=== PATIENT | male | born 1980 | race Caucasian/White ===

== ENCOUNTER 2019-05-01 14:23 | Outpatient (CLI) | payer BC ==
[~2019-05-01] VITALS: Ht 165.1 cm; Wt 60.5 kg
[2019-05-02] MEDS ORDERED: TMSL.4C PO (11:31)
[2019-05-02] MEDS ORDERED: NITR-65 PO (11:31)
[2019-05-02] MEDS ORDERED: PHEN-640 PO (11:31)
== END 2019-05-01 15:04 | disposition home or self-care (01) ==
LOC: PREOP 14:23
PROVIDERS: ATTEND Urology
DX: Z01.818 Encounter for other preprocedural examination (principal)

== ENCOUNTER → 2019-05-01 | Outpatient (CLI) | payer BC ==
[~2019-05-01] MED LIST: HYDR-4196 PO; NITR-65 PO; PHEN-640 PO; TMSL.4C PO
--- NOTE | 2019-05-01 14:19 | Diagnostic Imaging Report ---
INDICATION: History of distal right ureteral calculus. COMPARISON: I have no previous for comparison. FINDINGS: In the right hemipelvis at the level of the ischial spine there is an irregular calcification measuring 5.1 mm which may reflect a stone in the distal right ureter. No radiodense intrarenal stone found. Gas and bowel content project over the expected level of the left renal shadow. IMPRESSION: 5.1 mm right pelvic calcification suspicious for large distal right ureteral stone. Dictated by: Dictated on workstation # [id number]
== END ==
LOC: RAD 11:56
PROVIDERS: ATTEND Urology
DX: M61.9 Calcification and ossification of muscle, unspecified (principal); Z87.442 Personal history of urinary calculi
CPT/HCPCS: 74018

== ENCOUNTER 2019-05-02 08:28 | Day surgery (SDC) | payer BC ==
[2019-05-02] VITALS (11 sets, daily range): BP systolic 110–142; BP diastolic 68–92
[~2019-05-02] VITALS: Ht 165.1 cm; Wt 60.5 kg
[2019-05-02] MEDS ORDERED: LACTATED RINGERS 1,000 ML IV PRN (08:34)
[2019-05-02] MEDS ORDERED: cefTRIAXone FOR IV USE 1,000 MG in WATER (STERILE) FOR INJECTION 10 ML IV ONE (08:45)
--- NOTE | 2019-05-02 08:55 | Progress Note-Pre Operative ---
Pre-Operative Progress Note H&P Reviewed The H&P was reviewed, patient examined and no changes noted. Date Seen by Provider: May 02, 2019 Time Seen by Provider: 08:54 Date H&P Reviewed: May 02, 2019 Time H&P Reviewed: 08:54 Pre-Operative Diagnosis: RT DISTAL URETERAL STONE CAMILO MEAD MD May 02, 2019 08:55
--- NOTE | 2019-05-02 08:56 | Progress Note-Post Operative ---
Post-Operative Progess Note Surgeon (s)/Research Aide (s) Surgeon CAMILO MEAD MD Research Aide: NONE Pre-Operative Diagnosis RT DISTAL URETERAL STONE Post-Operative Diagnosis SAME Procedure & Operative Findings Date of Procedure 05/02/19 Procedure Performed/Findings RT URETEROSCOPY AND RT ESWL Anesthesia Type GENERAL Estimated Blood Loss Estimated blood loss (mL): NONE Specimens/Packing Specimens Removed NONE Packing: NONE CAMILO MEAD MD May 02, 2019 08:56
--- NOTE | 2019-05-02 08:57 | Discharge Inst-Urology ---
Discharge Inst-Urology Reconcile Patient Problems Problems Reviewed?: Yes Final Diagnosis RT DISTAL URETERAL STONE Patient Instructions/Follow Up Plan/Assessment/Instructions Please make appointment to been seen in office Saturday 05/13, KUB prior to it. KUB on way home Post ESWL instructions Increase oral fluids for 48 hours and then as needed. Diet and Activity as tolerated. If questions or concerns contact your physician Or seek help at emergency department. CAMILO MEAD MD May 02, 2019 08:57
[2019-05-02] MEDS ORDERED: LIDOCAINE PF 2% 5 ML (XYLOCAINE) VIAL ONE (09:00)
[2019-05-02] MEDS ORDERED: KETOROLAC 30 MG/ML VIAL ONE ×2 (09:00→09:35)
[2019-05-02] MEDS ORDERED: FUROSEMIDE 40 MG/4 ML INJ (LASIX) ONE ×2 (09:00→09:35)
[2019-05-02] MEDS ORDERED: SEVOFLURANE (ULTANE) 15 ML INHAL SOLN ONE ×2 (09:00→10:21)
[2019-05-02] MEDS ORDERED: proPOfol 200 MG/20 ML (DIPRIVAN) VIAL IV ONE (09:00)
[2019-05-02] MEDS ORDERED: MIDAZOLAM 2 MG/2 ML (VERSED) VIAL ONE (09:01)
[2019-05-02] MEDS ORDERED: fentaNYL INJECTION 100 MCG/2 ML AMP ONE (09:01)
--- NOTE | 2019-05-02 09:02 | Diagnostic Imaging Report ---
Nephrolithiasis KUB 8:54 AM There is a 5 mm calcification right-sided pelvis near the ureterovesical junction. This is unchanged compared to the previous day. Bowel gas pattern is normal. IMPRESSION: Calcification projecting over the right ureterovesical junction that could be a ureteral calculus. Dictated by: Dictated on workstation # [id number]
[2019-05-02] MEDS ORDERED: MEPERIDINE (DEMEROL) INJ 50 MG/ML IVP ONE (10:30)
[2019-05-02] MEDS ORDERED: morphine INJ 10 MG/ML 1ML (SYR OR VIAL) IVP ONE (10:30)
[2019-05-02] MEDS ORDERED: ONDANSETRON 4 MG/2 ML (SDV) Z0FRAN IVP PRN (10:30)
[2019-05-02] MEDS ORDERED: TMSL.4C PO (11:31)
[2019-05-02] MEDS ORDERED: PHEN-640 PO (11:31)
[2019-05-02] MEDS ORDERED: NITR-65 PO (11:31)
--- NOTE | 2019-05-02 13:06 | Diagnostic Imaging Report ---
INDICATION: Post extracorporeal shock wave lithotripsy. TECHNIQUE: Single supine view of the abdomen 12:15 PM CORRELATION STUDY: 05/02/2019 FINDINGS: Previous imaging demonstrated 5 mm calcification of the low right hemipelvis suggested positioning in the distal right ureter. This is not present at follow-up. Punctate calcification inferior pole right kidney is suggested. Left renal silhouette largely obscured by underlying bowel gas and stool. Nonobstructive appearing bowel gas pattern. IMPRESSION: 1. Nonvisualization previously noted 5 mm calcification in the right hemipelvis. Dictated by: Dictated on workstation # [id number]
--- NOTE | 2019-05-02 14:20 | OPERATIVE REPORT ---
DATE OF SERVICE: 05/02/2019 PREOPERATIVE DIAGNOSIS: Right distal ureteral stone. POSTOPERATIVE DIAGNOSIS: Right distal ureteral stone. OPERATION PERFORMED: Right ureteroscopy and ESWL. SURGEON: Dajuan Mead MD ANESTHESIA: General. COMPLICATIONS: None. DESCRIPTION OF PROCEDURE: Under satisfactory general anesthesia, the patient in lithotomy position in the cystoscopy suite. Genitalia were prepped and draped in the usual sterile fashion. Cystoscope was introduced under vision. The anterior urethra was normal. The prostate was nonobstructing, but there was a median bar. The bladder was entered and essentially normal except for sluggish efflux on the right side. Using the foroblique lens, I dilated the right ureteral orifice intramural portion to the level of the stone to accommodate a 6.9 [place] semirigid ureteroscope; however, I could not manipulate the curve just distal to the stone, so I discontinued further attempt and moved the patient to the ESWL suite after emptying the bladder with a cystoscope, and was put supine and under general anesthesia, the right distal ureteral stone was localized. Shocks were delivered at kV of 11. A total of 1500 shocks completely fragmented the stone that was not visualized anymore. We mapped the ureter up and down and there were no calcifications whatsoever. The patient received 40 mg of Lasix and 30 mg of Toradol IV at the end of the procedure. He tolerated the procedure and anesthesia well and was sent to recovery room in stable condition. Job ID: [id number] DocumentID: [id number] Dictated Date: 05/02/2019 10:04:32 Soft Iron Inspector Date: 05/02/2019 14:20:21 Dictated By: DAJUAN MEAD MD
--- NOTE | 2019-05-02 14:25 | Anesthesia-General Post-Op ---
General Patient Condition Mental Status/LOC: Same as Preop Cardiovascular: Satisfactory Nausea/Vomiting: Absent Respiratory: Satisfactory Pain: Controlled Complications: Absent Post Op Complications Complications None Follow Up Care/Instructions Patient Instructions None needed. Anesthesia/Patient Condition Patient Condition Patient is doing well, no complaints, stable vital signs, no apparent adverse anesthesia problems. No complications reported per nursing. CLARENCE GIL CRNA May 02, 2019 14:24
== END 2019-05-02 12:20 | disposition home or self-care (01) ==
LOC: SDC 08:28
PROVIDERS: ATTEND Urology
DX: N20.1 Calculus of ureter (principal)
CPT/HCPCS: 74018; 87081

== ENCOUNTER 2019-05-04 23:49 | Emergency (ER) | payer BC ==
[~2019-05-04] VITALS: Ht 165 cm; Wt 58.0 kg
[~2019-05-04 23:49] MED LIST changes: -HYDR-4196 PO
[2019-05-05] MEDS ORDERED: morphine INJ 10 MG/ML 1ML (SYR OR VIAL) IVP STA (00:13)
[2019-05-05] MEDS ORDERED: LACTATED RINGERS 1,000 ML IV SCH (00:15)
[2019-05-05] MEDS ORDERED: KETOROLAC 30 MG/ML VIAL IVP ONE (00:15)
[2019-05-05 00:39] LABS: HEMATOCRIT 40 % (40-54); HEMOGLOBIN 13.5 G/DL (13.3-17.7); MEAN CORPUSCULAR HEMOGLOBIN 29 PG (25-34); MEAN CORPUSCULAR VOLUME 86 FL (80-99); WHITE BLOOD COUNT 10.5 10^3/uL (4.3-11.0)
[2019-05-05 00:40] LABS: MEAN CORPUSCULAR HGB CONC 34 G/DL (32-36); MEAN PLATELET VOLUME 9.9 FL (7.4-10.4); PLATELET COUNT 234 10^3/uL (130-400); RED CELL DISTRIBUTION WIDTH 13.2 % (10.0-14.5)
[2019-05-05 00:45] LABS: BASOPHILS % (AUTO) 0 % (0-10); EOSINOPHILS % (AUTO) 0 % (0-10); LYMPHOCYTES # (AUTO) 3.7 X 10^3 (1.0-4.0); LYMPHOCYTES % (AUTO) 35 % (12-44); LYMPHOCYTES % (MANUAL) 26 %; MONOCYTES # (AUTO) 1.2 X 10^3 (0.0-1.0); MONOCYTES % (AUTO) 11 % (0-12); MONOCYTES % (MANUAL) 8 %; NEUTROPHILS # (AUTO) 5.5 X 10^3 (1.8-7.8); NEUTROPHILS % (AUTO) 53 % (42-75); NEUTROPHILS % (MANUAL) 60 %; REACTIVE LYMPHOCYTES 6 %
--- NOTE | 2019-05-05 00:58 | ED Back Pain ---
General Chief Complaint: Back Problems Stated Complaint: RIGHT SIDE LOW BACK PAIN Nursing Triage Note: PT HAD A LITHOTRIPSY DONE ON TUESDAY AND NOW PRESENTS WITH RIGHT FLANK PAIN. Nursing Sepsis Screen: No Definite Risk Source of Information: Patient Exam Limitations: No Limitations History of Present Illness Date Seen by Provider: May 05, 2019 Time Seen by Provider: 00:30 Initial Comments Patient's 39-year-old right iliac crest pain woke from sleep severe nausea no vomiting no dysuria no radiation to the back similar location to previous ureteral calculus that wasn't treated with lithotripsy of this past week. Timing/Duration: 1 Hour Severity: Severe Pain/Injury Location: Other (right iliac crest) Associated Symptoms: No fever, No tingling in legs/feet, No lower back pain, No loss of bladder control Allergies and Home Medications Allergies Coded Allergies: No Known Drug Allergies (Unverified , 05/01/19) Home Medications Hydrocodone/Acetaminophen 1 Each Tablet, 1 TAB PO Q6H PRN for PAIN-MODERATE Prescribed by: TRENT BECKHAM on 05/05/19 0141 Nitrofurantoin Monohyd/M-Cryst 100 Mg Capsule, 1 TAB PO BID Prescribed by: CARLOS MEZA on 05/02/19 1131 Phenazopyridine HCl 200 Mg Tablet, 1 TAB PO TID PRN for SPASMS Prescribed by: CARLOS MEZA on 05/02/19 1131 Tamsulosin HCl 0.4 Mg Cap, 0.4 MG PO DAILY Prescribed by: CARLOS MEZA on 05/02/19 1131 Patient Home Medication List Home Medication List Reviewed: Yes Review of Systems Constitutional: no symptoms reported EENTM: no symptoms reported Respiratory: no symptoms reported Cardiovascular: no symptoms reported Gastrointestinal: no symptoms reported Genitourinary: see HPI Musculoskeletal: see HPI Skin: no symptoms reported Psychiatric/Neurological: No Symptoms Reported Past Wmuobpx-Bdfhdo-Sodywe Hx Past Med/Social Hx: Reviewed Nursing Past Med/Soc Hx Patient Social History Alcohol Use: Rarely Uses Number of Drinks Today: GG Alcohol Beverage of Choice: Whiskey Recreational Drug Use: No Smoking Status: Never a Smoker 2nd Hand Smoke Exposure: Yes Recent Foreign Travel: No Contact w/Someone Who Travel: No Recent Infectious Disease Expo: No Recent Hopitalizations: No Physical Abuse: No Sexual Abuse: No Immunizations Up To Date Date of Influenza Vaccine: Dec 05, 2018 Seasonal Allergies Seasonal Allergies: No Past Medical History Surgeries: No Respiratory: No Cardiac: No Neurological: No Genitourinary: Yes Kidney Stones Gastrointestinal: No Musculoskeletal: No Endocrine: No HEENT: No Cancer: No Psychosocial: No Integumentary: No Blood Disorders: No Physical Exam Vital Signs Vital Signs - First Documented 05/04/19 23:57 Temp 37.5 Pulse 85 Resp 18 B/P (MAP) 162/89 (113) Pulse Ox 98 O2 Delivery Room Air Capillary Refill : Less Than 3 Seconds Height, Weight, BMI Height: '" Weight: lbs. oz. kg; 21.00 BMI Method: General Appearance: WD/WN, Mild Distress HEENT: PERRL/EOMI, Normal ENT Inspection, Moist Mucous Membranes; No Photophobia Neck: Full Range of Motion, Normal Inspection, Non Tender Cardiovascular: Regular Rate, Rhythm, No Edema, No Murmur Respiratory: Chest Non Tender, Lungs Clear, Normal Breath Sounds, No Accessory Muscle Use, No Respiratory Distress Gastrointestinal: Normal Bowel Sounds, No Organomegaly, No Pulsatile Mass, Non Tender, Soft Genital/Rectal: Normal Genital Exam Back: Normal Inspection, No CVA Tenderness Extremity: Normal Capillary Refill, Normal Inspection, Normal Range of Motion, Non Tender Neurologic/Psychiatric: Alert, Oriented x3, No Motor/Sensory Deficits, Normal Mood/Affect, baling machine tender II-XII Norm as Tested Skin: Normal Color, Warm/Dry Progress/Results/Core Measures Results/Orders Lab Results Laboratory Tests Test 05/05/19 00:32 05/05/19 00:50 Range/Units White Blood Count 10.5 4.3-11.0 10^3/uL Red Blood Count 4.66 4.35-5.85 10^6/uL Hemoglobin 13.5 13.3-17.7 G/DL Hematocrit 40 40-54 % Mean Corpuscular Volume 86 80-99 FL Mean Corpuscular Hemoglobin 29 25-34 PG Mean Corpuscular Hemoglobin Concent 34 32-36 G/DL Red Cell Distribution Width 13.2 10.0-14.5 % Platelet Count 234 130-400 10^3/uL Mean Platelet Volume 9.9 7.4-10.4 FL Neutrophils (%) (Auto) 53 42-75 % Lymphocytes (%) (Auto) 35 12-44 % Monocytes (%) (Auto) 11 0-12 % Eosinophils (%) (Auto) 0 0-10 % Basophils (%) (Auto) 0 0-10 % Neutrophils # (Auto) 5.5 1.8-7.8 X 10^3 Lymphocytes # (Auto) 3.7 1.0-4.0 X 10^3 Monocytes # (Auto) 1.2 H 0.0-1.0 X 10^3 Eosinophils # (Auto) 0.0 0.0-0.3 10^3/uL Basophils # (Auto) 0.0 0.0-0.1 10^3/uL Neutrophils % (Manual) 60 % Lymphocytes % (Manual) 26 % Monocytes % (Manual) 8 % Reactive Lymphocytes 6 % Sodium Level 142 135-145 MMOL/L Potassium Level 4.0 3.6-5.0 MMOL/L Chloride Level 105 98-107 MMOL/L Carbon Dioxide Level 26 21-32 MMOL/L Anion Gap 11 5-14 MMOL/L Blood Urea Nitrogen 19 H 7-18 MG/DL Creatinine 1.05 0.60-1.30 MG/DL Estimat Glomerular Filtration Rate > 60 BUN/Creatinine Ratio 18 Glucose Level 93 70-105 MG/DL Calcium Level 9.1 8.5-10.1 MG/DL Corrected Calcium 9.1 8.5-10.1 MG/DL Total Bilirubin 0.2 0.1-1.0 MG/DL Aspartate Amino Transf (AST/SGOT) 18 5-34 U/L Alanine Aminotransferase (ALT/SGPT) 13 0-55 U/L Alkaline Phosphatase 64 40-136 U/L Total Protein 6.8 6.4-8.2 GM/DL Albumin 4.0 3.2-4.5 GM/DL Urine Color YELLOW Urine Clarity CLEAR Urine pH 7.5 5-9 Urine Specific [place] 1.010 L 1.016-1.022 Urine Protein NEGATIVE NEGATIVE Urine Glucose (UA) NEGATIVE NEGATIVE Urine Ketones NEGATIVE NEGATIVE Urine Nitrite NEGATIVE NEGATIVE Urine Bilirubin NEGATIVE NEGATIVE Urine Urobilinogen 0.2 < = 1.0 MG/DL Urine Leukocyte Esterase NEGATIVE NEGATIVE Urine RBC (Auto) 3+ H NEGATIVE Urine RBC 50-100 H /HPF Urine WBC RARE /HPF Urine Squamous Epithelial Cells NONE /HPF Urine Crystals NONE /LPF Urine Bacteria TRACE /HPF Urine Casts NONE /LPF Urine Mucus NEGATIVE /LPF Urine Culture Indicated YES My Orders Orders - TRENT BECKHAM DO Ed Iv/Invasive Line Start (05/05/19 00:13) Ketorolac Injection (Toradol Injection) (05/05/19 00:15) Morphine Injection (Morphine Injection (05/05/19 00:13) Urinalysis (05/05/19 00:13) Lactated Ringers (Lr 1000 Ml Iv Solution (05/05/19 00:15) Cbc And Manual Diff (05/05/19 00:13) Comprehensive Metabolic Panel (05/05/19 00:13) Ct Abd/Pelvis Wo(Kidney Stone) (05/05/19 00:30) Urine Culture (05/05/19 00:50) Medications Given in ED Current Medications Medications Dose Ordered Sig/Vince Route Start Time Stop Time Status Last Admin Dose Admin Ketorolac Tromethamine 30 mg ONCE ONCE IVP 05/05/19 00:15 05/05/19 00:16 DC 05/05/19 00:30 30 MG Vital Signs/I&O 05/04/19 23:57 Temp 37.5 Pulse 85 Resp 18 B/P (MAP) 162/89 (113) Pulse Ox 98 O2 Delivery Room Air Blood Pressure Mean: 113 Progress Progress Note : Progress Note Patient with recent ureteral calculus treated with extracorporeal shock wave lithotripsy now with recurrent pain in the same area bedside ultrasound shows what appears to be dilated renal collecting system on the right plan will be a urine lab screening reimaging the CT disposition based on imaging Departure Communication (Admissions) CT shows dilated ureter stone in the bladder consistent with recently passed stone patient's symptomatology is better. He is recommended take ibuprofen given a small prescription of hydrocodone for breakthrough pain and recommended to call his urologist Tuesday for follow-up Impression Primary Impression: Right ureter dilated Disposition: HOME, SELF-CARE Condition: Stable Departure-Patient Inst. Referrals: NO,LOCAL PHYSICIAN (PCP) Primary Care Physician Patient Instructions: Kidney Stones (DC) Scripts Hydrocodone/Acetaminophen ([place] 10-325 Tablet) 1 Each Tablet 1 TAB PO Q6H PRN for PAIN-MODERATE MDD 5 TABS for 4 Days, #24 TAB Prov: TRENT BECKHAM DO 05/05/19 TRENT BECKHAM DO May 05, 2019 00:58
[2019-05-05 01:03] LABS: ALANINE AMINOTRANSFERASE 13 U/L (0-55); ALKALINE PHOSPHATASE 64 U/L (40-136); BILIRUBIN,TOTAL 0.2 MG/DL (0.1-1.0); BUN/CREATININE RATIO 18; CALCIUM 9.1 MG/DL (8.5-10.1); CARBON DIOXIDE 26 MMOL/L (21-32); CHLORIDE 105 MMOL/L (98-107); CREATININE SERUM 1.05 MG/DL (0.60-1.30); GFR ESTIMATED > 60; GLUCOSE 93 MG/DL (70-105); SODIUM 142 MMOL/L (135-145); TOTAL PROTEIN 6.8 GM/DL (6.4-8.2)
[2019-05-05 01:06] LABS: CLARITY,URINE CLEAR; COLOR,URINE YELLOW; GLUCOSE, URINE (UA) NEGATIVE (NEGATIVE); PH,URINE 7.5 (5-9); PROTEIN,URINE NEGATIVE (NEGATIVE)
[2019-05-05 01:07] LABS: BACTERIA,URINE TRACE /HPF; BILIRUBIN,URINE NEGATIVE (NEGATIVE); KETONES,URINE NEGATIVE (NEGATIVE); LEUKOCYTE ESTERASE ,URINE NEGATIVE (NEGATIVE); NITRITE,URINE NEGATIVE (NEGATIVE); RBC,URINE 50-100 /HPF; WBC,URINE RARE /HPF
[2019-05-05] MEDS ORDERED: HYDR-4196 PO (01:41)
[2019-05-05 01:42] VITALS: BP 131/73
--- NOTE | 2019-05-05 06:37 | Diagnostic Imaging Report ---
PROCEDURE: CT urinary tract, rule out kidney stone. TECHNIQUE: Multiple contiguous axial images were obtained through the abdomen and pelvis without the use of intravenous contrast. Auto Exposure Controls were utilized during the CT exam to meet ALARA standards for radiation dose reduction. INDICATION: Pelvic pain and history of nephrolithiasis. Right flank pain. No prior examinations are available for comparison. FINDINGS: The heart size is normal. The lung bases are clear. The liver is normal in size without focal lesions. Gallbladder is unremarkable. There is no biliary ductal dilatation. Spleen is normal. Pancreas and adrenal glands are unremarkable. There is right hydronephrosis and hydroureter, although there is no stone seen along the expected course of the ureter. This likely reflects recent stone passage. There is an additional nonobstructing punctate stone in the right kidney. There is some atrophy of the left kidney. Aorta is nonaneurysmal. Bowel gas pattern is nonspecific. There is no free air. There is no ascites. Bladder is normal. There is no pelvic mass or adenopathy. The osseous structures are unremarkable. IMPRESSION: 2 mm nonobstructing stone in the right kidney. There is some mild right hydronephrosis and hydroureter without obstructing stone. This likely reflects recent stone passage. Recommend clinical correlation. No other acute abnormality in the abdomen or pelvis. Dictated by: Dictated on workstation # [id number]
== END 2019-05-05 01:44 | disposition home or self-care (01) ==
LOC: EDUNIT# 23:49 → ER FS 23:52
DX: N28.82 Megaloureter (principal); Z77.22 Contact with and (suspected) exposure to environmental tobacco smoke (acute) (chronic); Z87.442 Personal history of urinary calculi
CPT/HCPCS: 36415; 74176; 80053; 81000; 85007; 85027; 87088; 96361; 96374; 96375

== ENCOUNTER → 2019-05-14 | Outpatient (CLI) | payer BC ==
[~2019-05-14] MED LIST changes: +HYDR-4196 PO
--- NOTE | 2019-05-14 14:30 | Diagnostic Imaging Report ---
INDICATION: Nephrolithiasis, post extracorporeal shock wave lithotripsy. TECHNIQUE: Single supine view of the abdomen 1:51 p.m. CORRELATION STUDY: 05/02/2019. FINDINGS: Moderate amount of retained fecal material and stool throughout the colon. No evidence for bowel obstruction or large fecal impaction. A previously demonstrated small 2 mm calcification in the right kidney is likely obscured by overlying stool. Definitive calcification along the expected course of either ureter is not suggested. IMPRESSION: 1. No definitive calcification along the expected kidneys and course of the ureters on single-view abdomen. Dictated by: Dictated on workstation # [id number]
== END ==
LOC: RAD 13:38
PROVIDERS: ATTEND Urology
DX: N20.2 Calculus of kidney with calculus of ureter (principal); Z98.890 Other specified postprocedural states
CPT/HCPCS: 74018

== ENCOUNTER → 2022-02-12 | Outpatient (CLI) | payer BC ==
--- NOTE | 2022-02-12 14:12 | Diagnostic Imaging Report ---
EXAMINATION: Abdomen 1 view HISTORY: RT KIDNEY STONE COMPARISON: 05/14/2019. FINDINGS: There is a moderate amount of gas and stool throughout the colon. Nonobstructive bowel gas pattern. No radiopaque foreign body. The lung bases are clear. The osseous structures are intact. IMPRESSION: Moderate stool burden without other acute abnormality in the abdomen. Dictated by: Dictated on workstation # [id number]
--- NOTE | 2022-02-12 14:13 | Diagnostic Imaging Report ---
Clinical Indication: Patient with right-sided pain and history kidney stones. Exam: CT exam of the abdomen and pelvis is performed without IV or oral contrast using stone protocol. Coronal and sagittal reformatted images were created. Auto Exposure Controls were utilized during the CT exam to meet ALARA standards for radiation dose reduction. Comparisons: CT scan of the abdomen and pelvis without contrast dated 05/05/2019. Findings: Visualized lung bases: Unremarkable. Liver: Unremarkable as visualized. Gallbladder: Unremarkable. Pancreas: Unremarkable as visualized. Spleen: Unremarkable as visualized. Adrenal glands: Unremarkable. Kidneys/ ureters: There is a 3 mm nonobstructive stone involving the upper portion of the right kidney. There are no other stones seen involving both kidneys. Previously seen right hydroureteronephrosis has resolved. Previously seen prominence of the left renal pelvis has resolved. There is atrophy of the left kidney again seen. Aorta: Unremarkable as visualized. Intraabdominal/ retroperitoneal contents: Unremarkable. Intestines: Unremarkable as visualized. Appendix: Unremarkable. Bladder: Unremarkable as visualized. Pelvic organs: Unremarkable as visualized. Extra abdominal/ pelvis regions: Unremarkable. Abdominal wall: Unremarkable. Bones: Unremarkable. Impression: 1: There is a 3 mm nonobstructive stone involving the right kidney. There are no other urinary stones seen. There is no hydronephrosis. 2: Previously seen right hydroureteronephrosis and prominence of the left renal pelvis has resolved. 3: There is no other significant abnormality. Dictated by: Dictated on workstation # [id number]
== END ==
LOC: RAD 13:36
PROVIDERS: ATTEND Urology
DX: N20.0 Calculus of kidney (principal)
CPT/HCPCS: 74018; 74176